=== PATIENT | male | born 1960 | race Caucasian/White ===

== ENCOUNTER → 2024-05-13 08:11 | Outpatient (REF) | payer OTHER, SELFPAY | LOC: HWRCS 08:11 | PROVIDERS: ATTENDING PHYSICIAN Internal Medicine Cardiovascular Disease; FAMILY PHYSICIAN Family Medicine | DX: I25.10 Atherosclerotic heart disease of native coronary artery without angina pectoris (principal); E78.5 Hyperlipidemia, unspecified; E78.00 Pure hypercholesterolemia, unspecified; I21.19 ST elevation (STEMI) myocardial infarction involving other coronary artery of inferior wall; Z95.5 Presence of coronary angioplasty implant and graft | CPT/HCPCS: 93306 ==

== ENCOUNTER → 2024-05-23 06:51 | Outpatient (REF) | payer OTHER, SELFPAY | LOC: RAD 06:51 | PROVIDERS: ATTENDING PHYSICIAN Internal Medicine Cardiovascular Disease; FAMILY PHYSICIAN Family Medicine | DX: I25.10 Atherosclerotic heart disease of native coronary artery without angina pectoris (principal); E78.5 Hyperlipidemia, unspecified; E78.00 Pure hypercholesterolemia, unspecified; I10 Essential (primary) hypertension; F17.200 Nicotine dependence, unspecified, uncomplicated; I21.19 ST elevation (STEMI) myocardial infarction involving other coronary artery of inferior wall; Z95.5 Presence of coronary angioplasty implant and graft | CPT/HCPCS: 76770 ==